=== PATIENT | female | born 1985 | race Caucasian/White ===

== ENCOUNTER 2018-05-15 17:22 | Outpatient (CLI) | END 2018-05-15 18:51 | disposition home or self-care (01) ==

== ENCOUNTER 2018-05-21 11:25 | Outpatient (CLI) | END 2018-05-21 13:55 | disposition home or self-care (01) ==

== ENCOUNTER 2018-05-28 22:42 | Outpatient (CLI) | END 2018-05-29 01:02 | disposition home or self-care (01) ==

== ENCOUNTER 2018-06-01 06:10 | Inpatient (IN) | END 2018-06-04 13:10 | disposition home or self-care (01) | DRG 788 ==